=== PATIENT | male | born 1985 | race African-American/Black ===

== ENCOUNTER 2017-07-03 21:39 | Emergency (ER) | payer OTHER ==
[2017-07-03 21:46] VITALS: BMI 25.0
--- NOTE | 2017-07-03 22:02 | PDOC ---
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 The patients guardian states the patient was seen earlier this evening at urgent care where he was positive for urine blood and nitrites, and a glucose of >1000. The patients guardian states the patient s abdomen is normally a little distended because of the medications which make him constipated, however, reports his abdomen is more distended than usual. She reports noticing the abdominal distension about 24 hours after a very large bowel movement the patient had on Saturday. She states the fever initiated around the same time as the abdominal distension and she reports she has been treating the fever with Tylenol every 4-6 hours, last given about 4 hours prior to ED arrival. She also states the patient indicates pain when she presses on his lower abdominal region. 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 Jerry Dutta <Rhina Plata - Last Filed: 07/03/17 22:34> - General History Source: Patient Exam Limitations: No Limitations <Josi Blunt - Last Filed: 07/04/17 02:29> - General Chief Complaint: Pain Stated Complaint: PAIN, ACUTE Time Seen by Provider: 07/03/17 22:01 Past History <Rhina Plata - Last Filed: 07/03/17 22:34> - Past Medical History Asthma: Yes Cardiac Disorders: Yes DVT: Yes Diabetes: Yes HTN: Yes - Psycho/Social/Smoking Cessation Hx Suicidal Ideation: No Smoking History: Never smoked Information on smoking cessation initiated: No Hx Alcohol Use: No Drug/Substance Use Hx: No <Josi Blunt - Last Filed: 07/04/17 02:29> - Past Medical History Allergies/Adverse Reactions: Allergies Allergy/AdvReac Type Severity Reaction Status Date / Time nut - unspecified Allergy Verified 07/03/17 22:48 Home Medications: Ambulatory Orders Anastrozole [Arimidex -] 1 mg PO DAILY 07/03/17 Chlorpromazine [Thorazine -] 300 mg PO QID 07/03/17 Clonidine HCl 0.2 mg PO BID 07/03/17 Clozapine 250 mg PO HS 07/03/17 Clozapine [Clozapine Odt] 150 mg PO DAILY 07/03/17 Gabapentin 200 mg PO BID 07/03/17 Levalbuterol HCl 1.25 mg IH PRN 07/03/17 Memantine HCl [Namenda -] 10 mg PO DAILY 07/03/17 Rivaroxaban [Xarelto -] 20 mg PO DAILY 07/03/17 Sitagliptin Phosphate [Januvia] 100 mg PO DAILY 07/03/17 Topiramate [Topamax] 25 mg PO DAILY 07/03/17 Topiramate [Topamax] 50 mg PO HS 07/03/17 Trazodone HCl 200 mg PO HS 07/03/17 Cefpodoxime Proxetil [Vantin -] 100 mg PO BID #14 tablet 07/04/17 Container,Empty [Enema Bottle] 1 each MC DAILY PRN #5 bottle 07/04/17 Lactulose (Oral Use) [Cephulac -] 20 gm PO DAILY PRN #5 udc 07/04/17 Magnesium Citrate [Citroma -] 150 ml PO DAILY PRN #3 bottle 07/04/17 Review of Systems - Review of Systems Able to Perform ROS?: No (nonverbal. Hx from Aunt) <Rhina Plata - Last Filed: 07/03/17 22:34> *Physical Exam - Vital Signs Last Vital Signs Temp Pulse Resp BP Pulse Ox 98.2 F 57 L 19 149/106 100 07/03/17 21:44 07/03/17 21:44 07/03/17 21:44 07/03/17 21:44 07/03/17 21:44 - Physical Exam Comments: 07/03/17 22:35 GENERAL: The patient is in no acute distress. HEAD: Normal with no signs of trauma. EYES: PERRLA, EOMI, sclera anicteric, conjunctiva clear. ENT: Ears normal, nares patent, oropharynx clear without exudates. Moist mucous membranes. NECK: Normal range of motion, supple without lymphadenopathy, JVD, or masses. LUNGS: Breath sounds equal, clear to auscultation bilaterally. No wheezes, and no crackles. HEART: (+) tachycardia with normal rhythm. Faint murmur 2/6. normal S1 and S2 without rub or gallop. ABDOMEN: (+) Distended, The patient grimaces to palpation of the lower abdomen. Tympanitic. Soft, normoactive bowel sounds. No guarding, no rebound. No masses palpable. EXTREMITIES: Normal range of motion, no edema. No clubbing or cyanosis. No erythema, or tenderness. NEUROLOGICAL: Cranial nerves II through XII grossly intact. Nonverbal at baseline. No focal neurological deficits. MUSCULOSKELETAL: Back non-tender to palpation, no CVA tenderness SKIN: Warm, Dry, normal turgor, no rashes or lesions noted. <Rhina Plata - Last Filed: 07/03/17 22:34> - Vital Signs Last Vital Signs Temp Pulse Resp BP Pulse Ox 98.2 F 57 L 19 149/106 100 07/03/17 21:44 07/03/17 21:44 07/03/17 21:44 07/03/17 21:44 07/03/17 21:44 <Josi Blunt - Last Filed: 07/04/17 02:29> ED Treatment Course - LABORATORY CBC & Chemistry Diagram: 07/03/17 22:10 07/03/17 22:10 <Josi Blunt - Last Filed: 07/04/17 02:29> Medical Decision Making - Medical Decision Making 07/03/17 22:02 A portion of this note was documented by scribe services under my direction. I have reviewed the details of the note, within reason, and agree with the documentation with the following case summary and management plan written by me. Nursing documentation reviewed and incorporated into medical decision making 07/03/17 23:52 Laboratory Tests 07/03/17 07/03/17 22:10 22:10 WBC 13.0 H Hgb 11.2 L Hct 33.8 L Plt Count 181 Neutrophils % 82.9 H Lymphocytes % 6.7 L Sodium 142 Potassium 3.0 L Chloride 113 H Carbon Dioxide 19 L BUN 12 Creatinine 0.9 Random Glucose 239 H Calcium 6.5 L* Albumin 2.4 L Total Amylase 14 L Lipase 75 07/03/17 23:54 Will correct pt Potassium and Calcium (corrected calcium 7.4) HCO3 19 Pt being hydrated 07/03/17 23:55 Will add acetone 09/07/17 02:01 INDICATION: Abdominal pain and distention DATE OF SERVICE: 2017-07-04 00:14:10 COMPARISON: none FINDINGS: Mild paraseptal emphysema is noted.. The visualized cardiac chambers are normal size and configuration. Normal unenhanced liver, gallbladder, pancreas, spleen, adrenal glands and kidneys. The stomach and small bowel are normal. There is a very large amount of solid stool, particularly from the splenic flexure to the rectum, most likely representing fecal impaction. Transverse colon is distended up to 8.3 cm with a large amount of gas. No bowel obstruction or inflammation. There is no aortic aneurysm. There is no significant retroperitoneal lymphadenopathy. Right lateral abdominal wall and anterior pelvic wall subcutaneous varicosities are noted. The appendix is normal. The urinary bladder and prostate gland are normal. No pelvic free fluid is identified. There is no significant pelvic lymphadenopathy. IMPRESSION: Probable fecal impaction and large amount of intestinal gas. Abdominal pelvic wall varicosities of uncertain significance. Mild paraseptal emphysema. I have had a long conversation with patient's aunt (sub acute care nurse, legal guardian) I have expressed my concern about his bowel distention and the possibility of perforation Pt aunt is very concerned about my plan for admission because this patient would require round the clock care in the hospital by a family member for this patient to be calm She states that at this time, this is not possible She feels confident that she will be able to provide a combination of enemas and oral stimulants I have stressed my concern that it will be hard to monitor his physicial examination Pt aunt unwilling to have him stay in the hospital at this time 07/04/17 02:03 07/04/17 02:03 She would like to bring him home Do not want to stay for any additional labs I have reviewed with her the johnson physical exam findings - Monitor for increased abdominal pain, abdominal pain in areas besides the lower abdomen where he currently has pain, pain when his chair/bed is shaken OR when he goes over the bumps in the road, fevers, irritability, somnolence I have explained if this is the case, his bowel distention has resulted in a perforation that has caused peritonitis which can be fatal I have asked her to monitor his temperature I have asked them to follow up with GI 07/04/17 02:27 <Josi Blunt - Last Filed: 07/04/17 02:29> *DC/Admit/Observation/Transfer - Attestations Scribe Attestion: 07/03/17 22:37 Documentation prepared by Rhina Plata, acting as senior medical writer for Josi Blunt MD <Rhina Plata - Last Filed: 07/03/17 22:34> - Discharge Dispostion Admit: No <Josi Blunt - Last Filed: 07/04/17 02:29> Diagnosis at time of Disposition: Gaseous distention of intestine determined by X-ray Constipation Qualifiers: Constipation type: other constipation type Qualified Code(s): K59.09 - Other constipation UTI (urinary tract infection) Qualifiers: Urinary tract infection type: acute cystitis Hematuria presence: with hematuria Qualified Code(s): N30.01 - Acute cystitis with hematuria - Discharge Dispostion Disposition: AGAINST MEDICAL ADVICE Condition at time of disposition: Stable - Prescriptions Prescriptions: Lactulose (Oral Use) [Cephulac -] 20 gm PO DAILY PRN #5 udc PRN Reason: Constipation Magnesium Citrate [Citroma -] 150 ml PO DAILY PRN #3 bottle PRN Reason: Constipation Container,Empty [Enema Bottle] 1 each MC DAILY PRN #5 bottle PRN Reason: Constipation Cefpodoxime Proxetil [Vantin -] 100 mg PO BID #14 tablet - Referrals Referrals: Jerry Dutta [Primary Care Provider] - Shwetha Ding MD [Staff Physician] - - Patient Instructions Printed Discharge Instructions: DI for Constipation, Constipation (Alternative Therapy), Constipation Additional Instructions: Thank you for coming in to the ER today Please: Initiate medications for constipation - Magnesium citrate every other day, Enemas (including mineral oil enemas) daily, Lactulose as needed Please continue gas x for gas Please monitor for fevers (Take temperature when pt is warm) Please monitor for signs of peritonitis (due to rupture of bowel) which includes increase abdominal pain, rigid abdomen, diffuse abdominal pain/ tenderness, pain with movement of patient's bed/chair, pain when pt goes over bumps in road Please follow up with Spa Manager/Esthetician for senior living solution Please follow up with PMD within 2 days for re evaluation Please take antibiotics for UTI Please bring CT and labs for your PMD to review Please feel free to return to the ER IMMEDIATELY for ANY concerns, new symptoms , complaints, progression of symptoms
[2017-07-03] MEDS ORDERED: SODIUM CHLORIDE 1,000 ML IV STA (22:17)
[2017-07-03] MEDS ORDERED: ACETAMINOPHEN 1000 MG/100 ML VIAL (NON FORMULARY) IVPB ONE (22:17)
[2017-07-03 23:04] LABS: BASOPHIL 0.5 % (0-2.0); EOSINOPHIL 0.1 % (0-4.5); MCH 28.3 pg (25.7-33.7); MCHC 33.2 g/dl (32.0-35.9); MEAN CELL VOLUME 85.3 fl (80-96); MEAN PLT VOLUME 7.7 fl (7.5-11.1); NEUTROPHILS 82.9 % (42.8-82.8); PLATELET COUNT 181 K/MM3 (134-434); RDW 15.2 % (11.9-15.9)
[2017-07-03 23:37] LABS: ALBUMIN 2.4 g/dl (3.4-5.0); ALK PHOS 62 U/L (45-117); AMYLASE 14 U/L (25-115); ANION GAP 10 (8-16); BILIRUBIN,TOTAL 0.6 mg/dL (0.2-1.0); CO2 19 mmol/L (21-32); CREATININE 0.9 mg/dL (0.7-1.3); GLUCOSE,RANDOM 239 mg/dL (74-106); SGOT/AST 26 U/L (15-37); SGPT/ALT 42 U/L (12-78); TOT PROT 4.7 g/dl (6.4-8.2)
[2017-07-03 23:41] LABS: CALCIUM 6.5 mg/dL (8.5-10.1)
[2017-07-03] MEDS ORDERED: KCL 10 MEQ IVPB 100 ML IVPB SCH (23:45)
[2017-07-03] MEDS ORDERED: CALCIUM GLUCONATE 10% - 1,000 MG/10 ML VIAL IVPB ONE (23:53)
[2017-07-03 23:54] LABS: URINE APPEARANCE TURBID; URINE BILIRUBIN NEGATIVE (NEGATIVE); URINE BLOOD 3+ (NEGATIVE); URINE COLOR RED; URINE GLUCOSE (UA) 3+ (NEGATIVE); URINE KETONE NEGATIVE (NEGATIVE); URINE LEUK ESTERASE TRACE (NEGATIVE); URINE NITRITE NEGATIVE (NEGATIVE); URINE UROBILINOGEN NEGATIVE mg/dL (0.2-1.0)
[2017-07-04 00:06] LABS: URINE PROTEIN 2+ (NEGATIVE)
[2017-07-04 00:08] LABS: URINE BACTERIA MANY /hpf (NONE SEEN); URINE MUCUS FEW; URINE RBC 110 /hpf (0-3); URINE WBC 103 /hpf (3-5)
[2017-07-04] MEDS ORDERED: CEFTRIAXONE 1 GM in DEXTROSE 5%-WATER - 50 ML IVPB ONE (00:15)
[2017-07-04] MEDS ORDERED: CEFTRIAXONE 50 ML ONE (00:17)
[2017-07-04] MEDS ORDERED: CALCIUM GLUCONATE 10% - 1,000 MG/10 ML VIAL ONE (00:17)
[2017-07-04] MEDS ORDERED: KCL 10 MEQ IVPB 100 ML IVPB ONE (00:17)
[2017-07-04 03:50] VITALS: BP 131/79; PULSE 86; TEMP 98.1
== END 2017-07-04 03:50 | disposition left against medical advice (07) ==
LOC: JER 21:39
PROC: 3E033NZ Introduction of Analgesics, Hypnotics, Sedatives into Peripheral Vein, Percutaneous Approach (ICD-10-PCS; principal; 2017-07-03)
PROC: 3E03329 Introduction of Other Anti-infective into Peripheral Vein, Percutaneous Approach (ICD-10-PCS; 2017-07-03)
PROC: 3E033GC Introduction of Other Therapeutic Substance into Peripheral Vein, Percutaneous Approach (ICD-10-PCS; 2017-07-03)
PROC: 3E0337Z Introduction of Electrolytic and Water Balance Substance into Peripheral Vein, Percutaneous Approach (ICD-10-PCS; 2017-07-03)
DX: K59.09 Other constipation (principal); N30.01 Acute cystitis with hematuria; R14.0 Abdominal distension (gaseous)
CPT/HCPCS: 36415; 74176-TC; 80053; 81003; 81015; 82009; 82150; 83690; 85025; 87086; 87186; 99283-25